=== PATIENT | female | born 1990 | race Caucasian/White ===

== ENCOUNTER 2021-11-13 06:17 | Emergency (ER) | payer MEDICAID ==
[~2021-11-13] VITALS: Ht 165.1 cm; Wt 67.8 kg
[2021-11-13] MEDS ORDERED: ACETAMINOPHEN 325MG TABLET PO STA (07:54)
[2021-11-13 08:03] LABS: CLARITY URINE CLEAR (CLEAR); COLOR URINE YELLOW (YELLOW); KETONES URINE TRACE (NEGATIVE); LEUKOCYTE ESTERASE URINE TRACE (NEGATIVE); NITRITE URINE NEGATIVE (NEGATIVE); OCCULT BLOOD URINE 3+ (NEGATIVE); PH URINE 5.5 (4.5-8.0); PROTEIN URINE TRACE (NEGATIVE); SPECIFIC GRAVITY URINE 1.022 (1.005-1.030)
[2021-11-13 08:50] LABS: CHLORIDE 106 mEq/L (98-107)
[2021-11-13 08:53] LABS: BASOPHILS % 0.2 % (0.0-2.0); EOSINOPHILS % 0.1 % (0.0-5.0); HEMATOCRIT. 39.6 % (36.0-48.0); HEMOGLOBIN. 13.4 g/dL (12.0-16.0); LYMPHOCYTES % 7.6 % (20.0-50.0); MEAN CORPUSCULAR HEMOGLOBIN 31.3 pg (28.0-32.0); MEAN CORPUSCULAR VOLUME 92.6 fL (81.0-99.0); MEAN PLATELET VOLUME 9.4 fl (7.4-10.4); MONOCYTES % 7.5 % (2.0-8.0); NEUTROPHILS % 84.6 % (40.0-76.0); PLATELET 263 x1000/uL (130-400); RED BLOOD CELL COUNT 4.28 mill/uL (4.2-5.4); RED CELL DISTRIBUTION WIDTH 13.1 % (11.6-14.6)
[2021-11-13] MEDS ORDERED: TOPUD PO (09:32)
[2021-11-13 12:10] VITALS: BP 110/71
== END 2021-11-13 12:38 | disposition home or self-care (01) ==
LOC: ER 06:17
DX: R10.84 Generalized abdominal pain (principal)
CPT/HCPCS: 36415; 76700; 76830; 76856; 80053; 81003; 85025; 99284

== ENCOUNTER 2022-11-09 20:26 | Inpatient (IN) | payer MEDICAID ==
[~2022-11-09] VITALS: Ht 165.1 cm; Wt 66.4 kg
[~2022-11-09 20:26] MED LIST: TOPUD PO
[2022-11-09 21:58] LABS: CLARITY URINE CLOUDY (CLEAR); COLOR URINE YELLOW (YELLOW); KETONES URINE NEGATIVE (NEGATIVE); LEUKOCYTE ESTERASE URINE TRACE (NEGATIVE); NITRITE URINE NEGATIVE (NEGATIVE); OCCULT BLOOD URINE NEGATIVE (NEGATIVE); PH URINE 6.5 (4.5-8.0); PROTEIN URINE NEGATIVE (NEGATIVE); SPECIFIC GRAVITY URINE 1.014 (1.005-1.030); UROBILINOGEN URINE 0.2 E.U./dL (0.2-1.0)
[2022-11-09 22:26] LABS: BASOPHILS % 0.2 % (0.0-2.0); EOSINOPHILS % 0.4 % (0.0-5.0); HEMATOCRIT. 35.8 % (36.0-48.0); HEMOGLOBIN. 12.5 g/dL (12.0-16.0); LYMPHOCYTES % 10.3 % (20.0-50.0); MEAN CORPUSCULAR HEMOGLOBIN 32.5 pg (28.0-32.0); MEAN CORPUSCULAR VOLUME 93.1 fL (81.0-99.0); MEAN PLATELET VOLUME 9.5 fl (7.4-10.4); MONOCYTES % 4.9 % (2.0-8.0); NEUTROPHILS % 84.2 % (40.0-76.0); PLATELET 220 x1000/uL (130-400); RED BLOOD CELL COUNT 3.84 mill/uL (4.2-5.4); RED CELL DISTRIBUTION WIDTH 13.4 % (11.6-14.6)
[2022-11-09 22:32] LABS: CHLORIDE 104 mEq/L (98-107)
[2022-11-09] MEDS ORDERED: ONDANSETRON 4MG ODT PO NR (22:52)
[2022-11-10] MEDS ORDERED: SODIUM CHLORIDE 0.9% 1,000 ML IV ONE (03:15)
[2022-11-10] MEDS ORDERED: ACETAMINOPHEN 325MG TABLET PO ONE (07:30)
[2022-11-10] MEDS ORDERED: ONDANSETRON HCL 4MG/2ML INJ ONE (12:03)
[2022-11-10] MEDS ORDERED: ETOMIDATE 2MG/ML 10ML VIAL IV ONE (12:03)
[2022-11-10] MEDS ORDERED: CEFAZOLIN SODIUM 1000MG/VIAL ONE (12:03)
[2022-11-10] MEDS ORDERED: ROCURONIUM BROMIDE 10MG/ML VIAL 5ML IV ONE (12:03)
[2022-11-10] MEDS ORDERED: DEXAMETHASONE 4MG/ML 1ML VIAL ONE (12:03)
[2022-11-10] MEDS ORDERED: CEFTRIAXONE 1GM PREMIX 50 ML IV ONE (12:15)
[2022-11-10] MEDS ORDERED: METRONIDAZOLE 500 MG PREMIX 100 ML IV ONE (12:15)
[2022-11-10] MEDS ORDERED: BUPIVACAINE HCL/PF 0.5% (5MG/ML) 10ML ONE (12:19)
[2022-11-10] MEDS ORDERED: FENTANYL CITRATE/PF 50MCG/ML 2ML VIAL ONE (12:35)
[2022-11-10] MEDS ORDERED: MORPHINE SULFATE 4 MG/ML CPJ (NOT FOR IM USE) IV PRN (13:00)
[2022-11-10] MEDS ORDERED: ONDANSETRON HCL 4MG/2ML INJ IV PRN (13:00)
[2022-11-10] MEDS ORDERED: HYDROCODONE/ACETAMINOPHEN 5/325MG TABLET PO PRN ×2 (13:00)
[2022-11-10] MEDS ORDERED: MORPHINE SULFATE 2 MG/ML CPJ (NOT FOR IM USE) IV PRN (13:00)
[2022-11-10] MEDS ORDERED: FENTANYL CITRATE/PF 50MCG/ML 2ML VIAL IV PRN (13:15)
[2022-11-10] MEDS: DEXT 5%/0.45% NACL KCL 20MEQ/L 1,000 ML IV SCH ×2 (13:48→13:50)
[2022-11-10] MEDS ORDERED: ACETAMINOPHEN 325MG TABLET PO PRN ×2 (14:15)
[2022-11-10 20:00] VITALS: BP_SYST 100; BP_SYST 105; BP_DIAS 65; BP_DIAS 71; PULSE 61; PULSE 70; RESP 17; TEMP 97.9; TEMP 98.1
[2022-11-11] VITALS: BP 105/71; PULSE 61; RESP 17; TEMP 97.9
[2022-11-11 04:00] VITALS: BP 94/57; PULSE 60; RESP 17; TEMP 98.1
[2022-11-11] MEDS: DEXT 5%/0.45% NACL KCL 20MEQ/L 1,000 ML IV SCH (09:00)
[2022-11-11] MEDS ORDERED: NALOXONE HCL 0.4MG/ML VIAL IV PRN (17:00)
[2022-11-11 20:00] VITALS: BP 97/62; PULSE 66; RESP 18; TEMP 99.9
[2022-11-12 08:00] VITALS: BP 97/61; PULSE 62; RESP 18; TEMP 97.3
[2022-11-12 12:00] VITALS: BP 102/63; PULSE 61; RESP 18; TEMP 97.8
[2022-11-12 14:32] VITALS: BP 130/87; PULSE 75; TEMP 97.5; O2SAT 99
[2022-11-12 17:34] LABS: BASOPHILS % 0.4 % (0.0-2.0); HEMATOCRIT. 34.6 % (36.0-48.0); HEMOGLOBIN. 12.2 g/dL (12.0-16.0); LYMPHOCYTES % 29.3 % (20.0-50.0); MEAN CORPUSCULAR HEMOGLOBIN 32.5 pg (28.0-32.0); MEAN CORPUSCULAR VOLUME 92.5 fL (81.0-99.0); MEAN PLATELET VOLUME 9.1 fl (7.4-10.4); MONOCYTES % 8.1 % (2.0-8.0); NEUTROPHILS % 60.2 % (40.0-76.0); PLATELET 202 x1000/uL (130-400); RED BLOOD CELL COUNT 3.74 mill/uL (4.2-5.4); RED CELL DISTRIBUTION WIDTH 13.6 % (11.6-14.6)
[2022-11-12 17:39] LABS: CHLORIDE 105 mEq/L (98-107)
[2022-11-12 17:44] LABS: PHOSPHORUS 4.2 mg/dL (2.5-4.9)
== END 2022-11-12 16:55 | disposition home or self-care (01) | DRG 547 ==
LOC: ER 20:26 → 6EST 11-10 12:06 → EDBEDREQTM 11-10 12:33 → EDBEDREQ 11-10 12:33
PROVIDERS: ADMIT Internal Medicine; ATTEND Internal Medicine
PROC: 0DTJ4ZZ Resection of Appendix, Percutaneous Endoscopic Approach (ICD-10-PCS; principal; 2022-11-10)
DX: O99.612 Diseases of the digestive system complicating pregnancy, second trimester (principal); K35.80 Unspecified acute appendicitis; Z3A.14 14 weeks gestation of pregnancy; Z20.822 Contact with and (suspected) exposure to COVID-19
CPT/HCPCS: 36415; 72195; 74181; 76700; 76801; 76857; 80048; 80053; 81003; 83605; 83735; 84100; 85025; 87426; 88304; 93005; 99285; C9803; J0690; J1100; J2405; J3010; J3490; J7030; Q0162